=== PATIENT | female | born 1950 | race Caucasian/White ===

== ENCOUNTER 2017-05-18 06:56 | Day surgery (SDC) | payer MEDICARE, BC ==
[2017-05-15 10:28] VITALS: BMI 35.3
[~2017-05-18 06:56] MED LIST: FLU VACC TS2017-18 (>65YR) 0.5 ML SYRINGE IM ONE
[2017-05-18 07:57] VITALS: BP 149/85; TEMP 97.7
[2017-05-18] MEDS ORDERED: Iopamidol-M 300 61% 15 ML VIAL ONE ×2 (16:37→16:38)
--- NOTE | 2017-05-18 17:33 | CT ---
CT GUIDED CERVICAL MYELOGRAM: 05/18/17 CLINICAL HISTORY: Back pain. PROCEDURE: Informed consent was obtained from the patient. The patient was escorted to the CT suite and placed in a right decubitus position with the cervical spine imaged for procedural planning. The patient's skull base and neck soft tissues were then prepped and draped in the standard sterile fashion. Topic al anesthesia was achieved with buffered 1% lidocaine. Subsequently at 22 gauge needle was uneventfu lly accessed into the thecal sac of the C1-2 level, from a left lateral approach. Approximately 9 mL of Isovue M300 was then instilled into the thecal sac which was confirmed with imaging. Needle was removed. Patient tolerated the procedure well without evidence of complication. Patient was monitore d in the radiology holding area and discharged in stable condition subsequent to the procedure. IMPRESSION: Technically successful CT guided cervical myelogram. Reference separate reports for details regardin g the CT cervical spine, CT thoracic spine and CT lumbar spine contrasted diagnostic imaging exams. POS: [facility]
--- NOTE | 2017-05-18 18:56 | RAD ---
CERVICAL SPINE MYELOGRAM THORACIC SPINE MYELOGRAM LUMBAR SPINE MYELOGRAM: INDICATION: Radiculopathy. FLUORO DATA: 0.4 minutes intermittent fluoroscopy. 349 mGy*cm\S\2. PROCEDURE: After informed consent had been obtained, the patient was escorted to the interventional suite and p laced on the procedural table. [employer] imaging was performed. The patient was placed into a prone po sition. Skin on the low back was then prepped and draped in the standard sterile fashion and topica l and regional soft tissue anesthesia was achieved with 1% lidocaine and sodium bicarbonate. L4-5 in terlaminar approach was selected, and a 22 gauge needle was used. Despite standard fluoroscopic as w ell as subsequent imaging under rotational C-arm imaging, acquisition into the thecal sac was not ob tainable due to extensive bone fragment posterior to the spinal column. The patient was subsequently transferred to CT to undergo CT myelogram. IMPRESSION: Fluoroscopic imaging for myelogram procedure as above. Due to extensive posterior bone fragmentation access into the thecal sac was not obtainable. This was discussed with the patient and the patient was offered procedure to include CT guided cervi miroslava myelogram which the patient consented. Patient was subsequently transferred to CT for CT guided cervical myelogram. Reference separate report for further details. POS: [facility]
--- NOTE | 2017-05-18 19:23 | CT ---
CT CERVICAL SPINE WITH CONTRAST: Imaging performed subsequent to myelogram procedure. Indication: Pain, radiculopathy. FINDINGS: Degenerative hypertrophy of the atlantodental articulation is present which minimally effaces the ve ntral CSF space without high grade stenosis of the vertebral canal. C2-3: No significant central canal stenosis. There is uncinate and facet hypertrophy on the right wi th mild right foraminal narrowing. Left foramen is patent. C3-4: Mild, asymmetric to the left facet hypertrophy as well as uncinate process hypertrophy present with mild left foraminal narrowing. No significant central canal or right foraminal stenosis. C4-5: Broad based disc osteophyte complex is present with mild narrowing of the central canal. There is moderate right facet osteoarthritis/hypertrophy along with uncinate process hypertrophy producin g mild right foraminal stenosis. No significant left foraminal stenosis. C5-6: Broad based disc osteophyte is present and there is asymmetric, moderate left facet hypertroph y along with bilateral uncinate process hypertrophy. Constellation of findings produces mild central canal stenosis and mild bilateral neural foraminal stenosis. There is mild ventral cord flattening. C6-7: Broad based disc osteophyte complex results in moderate central canal stenosis with associated mild cord compression. There is moderate biforaminal stenosis. C7-T1: No high grade central canal stenosis. There is mild narrowing of each neural foramen. There is grade I spondylolisthesis of C4-5 and C5-6. Trace retrolisthesis of C6-7 and trace spondylo listhesis of C7-T1, with findings likely on the basis of degenerative etiologies. Incidental note of interstitial opacification of the imaged lung zones, incompletely evaluated. IMPRESSION: Multilevel degenerative change throughout the cervical spine which is most pronounced at C6-7 with m oderate central canal stenosis and associated cord compression due to a broad based disc osteophyte complex. POS: [facility]
--- NOTE | 2017-05-18 19:34 | CT ---
CT THORACIC SPINE WITH CONTRAST: Exam is performed subsequent to myelogram procedure. Clinical history: Back pain, radiculopathy. FINDINGS: There is extensive sclerosis throughout multilevel vertebrae with interspersed areas of presumed cys tic degeneration. There is an indwelling, partially visualized dorsal column stimulator with tip ter minating at the dorsal aspect of the vertebral canal at the T7-8 level. No significant central canal stenosis of T1-2, T2-3. There is a mild right subarticular disc osteoph yte of T2-3 which mildly effaces the right ventral thecal sac. The T3-4 level reveals broad based disc osteophyte with mild narrowing of the central canal. At the T4-5 level there is a slight asymmetric right ventral CSF effacement due to disc osteophyte. No high grade central canal stenosis at T5-6 or T6-7. T7-8 level reveals prominent soft tissue density at the ventral aspect of the vertebral canal likely on the basis of degenerative disc which may relate to a component of cephalad extrusion or alternat ively dural hyperplasia. There is a punctate increased density about this region with adjacent parti ally gas filled cystic structure of the posterior and inferior T7 vertebral body favoring degenerati ve cyst formation with mild fragmentation of osteophyte and/or component of calcified disc bulge. Th ere is limited evaluation of the spinal cord at this level due to streak artifact from the indwellin g dorsal column stimulator. T8-9 level reveals mild CSF effacement ventrally due to disc osteophyte, and mild disc osteophyte co mplex also present at the T9-10, T10-11 and T11-12 levels with mild central canal stenosis of T10-11 and mild to moderate central canal stenosis or T11-12. There is mild to moderate multilevel osseous compromise of the neural foraminal throughout the thora cic spine. There is partially imaged hardware of the T12 segment. Incidental note of a mild to moderate size hiatal hernia. There is scattered vascular calcification. There are incidentally imaged areas of interstitial and ground glass opacity at each lung, incomple tely evaluated. There is levoscoliosis of the lower thoracic spine. IMPRESSION: 1. Multilevel degenerative changes of the thoracic spine. There is extensive presumed degenerative a ltered density of the regional osseous structures with multifocal mixed sclerosis and presumed degen erative cyst formation. 2. Indwelling dorsal column stimulator present. 3. Multilevel disc osteophyte complex formation/disc pathology with associated mild and mild to mode rate areas of central canal narrowing as above. POS: [facility]
--- NOTE | 2017-05-18 19:38 | SPC ---
FLUOROSCOPIC IMAGING SPINAL INJECTION: Indication: Back pain, radiculopathy. Procedure: Please reference the separate dictation from patient's myelogram report. This portion of the procedu re was performed in an attempt to obtained access into the thecal sac of the lumbar spine under real -time fluoroscopic imaging with rotational imaging. Due to extensive ossification posterior to the v ertebral column, access into the thecal sac could not be obtained. Therefore, patient was transferre d CT to undergo CT cervical spine myelogram. Reference separate report for full details. This portion of the exam was performed in conjunction with the fluoroscopic procedure deport. IMPRESSION: 1. Fluoroscopic imaging for guidance to the thecal sac of the lumbar spinal canal. Intrathecal acces s could not be obtained due to extensive ossification posterior to the patient's post-operative lumb ar spine. 2. Reference CT guided cervical myelogram report for full details. POS: [facility]
--- NOTE | 2017-05-18 20:17 | CT ---
CT LUMBAR SPINE WITH CONTRAST: Imaging performed subsequent to myelogram procedure. Comparison: 04-07-13 FINDINGS: There is extensive post-operative metallic fixation spinal hardware spanning T12 through S1 with marvin ateral pedicle screws at each level and bilateral vertical interconnecting rods. Anterior metallic p late fixation present involving the L4 vertebral body with plate and screw overlying the anterior as pect of the L3-4 and L4-5 disc spaces as well as anterior metallic plate and screw placement at the inferior L5 level with plate overlying the anterior confines of the L5-S1 disc. There is a partially imaged dorsal column stimulator which enters the posterior aspect of the verteb ral canal at the T12-L1 level. There is mild retrolisthesis of L2 on L3 and trace spondylolisthesis of L4-5 level. No compression fracture. There is extensive posterior heterotopic bone overlying the posterior elements. Evaluation is markedly limited due to extensive beam hardening artifact from mul tilevel hardware. L5-S1: Contents of the vertebral canal are grossly stable to prior exam. There is mild bilateral for aminal narrowing and mild ventral CSF effacement of the thecal sac. L4-5: Extensive posterior osseous fusion mass present. There is mild narrowing of the thecal sac as well as potential for impingement upon the traversing right L5 nerve root due to osseous hypertrophy . Mild osseous narrowing of each neural foramen present. L3-4: There is mild effacement of the thecal sac and mild bilateral osseous narrowing of the neural foramina. L2-3: Limited evaluation of the thecal sac due to extensive streak and beam hardening artifact. Sugg estion of mild narrowing of the central canal. There is mild bilateral neural foraminal narrowing. L1-2: Effacement of the ventral thecal sac. Mild left foraminal narrowing and minimal right foramina l narrowing on the basis of osseous compromise. Moderate distention of the partially imaged urinary bladder. There is diffuse osseous sclerosis involving the visualized osseous structures of the pelvis as well as within the lower thoracic spine. No significant perihardware lucency identified within limitatio ns. IMPRESSION: 1. Multilevel extensive post-operative change of the lumbar spine which markedly limits evaluation d ue to beam hardening/streak artifact from indwelling hardware. 2. Multilevel degenerative changes are discussed above. POS: [facility]
== END 2017-05-18 13:55 | disposition home or self-care (01) ==
LOC: RAD 06:56
PROVIDERS: ATTEND Family Medicine
PROC: B02BYZZ Computerized Tomography (CT Scan) of Spinal Cord using Other Contrast (ICD-10-PCS; principal; 2017-05-18)
DX: M54.12 Radiculopathy, cervical region (principal); M54.14 Radiculopathy, thoracic region; M54.16 Radiculopathy, lumbar region; F41.9 Anxiety disorder, unspecified; M19.90 Unspecified osteoarthritis, unspecified site; K63.9 Disease of intestine, unspecified; I10 Essential (primary) hypertension; K21.9 Gastro-esophageal reflux disease without esophagitis; Z88.1 Allergy status to other antibiotic agents; Z88.2 Allergy status to sulfonamides; Z79.899 Other long term (current) drug therapy; Z98.51 Tubal ligation status; Z90.89 Acquired absence of other organs; Z90.721 Acquired absence of ovaries, unilateral; Z96.653 Presence of artificial knee joint, bilateral; Z98.891 History of uterine scar from previous surgery; Z87.891 Personal history of nicotine dependence; Z82.61 Family history of arthritis; Z82.49 Family history of ischemic heart disease and other diseases of the circulatory system; Z82.62 Family history of osteoporosis
CPT/HCPCS: 62305; 72126; 72129; 72132; 77002; 77003

== ENCOUNTER 2017-10-11 09:42 | Emergency (ER) | payer MEDICARE, BC ==
--- NOTE | 2017-10-11 10:14 | RAD ---
PORTABLE CHEST: Date: 10/11/17 PROVIDED CLINICAL HISTORY: Dyspnea. FINDINGS: Comparison with 07/02/10. Cardiac and mediastinal silhouette is within normal limits for portable technique. No focal consolida tion, pleural fluid, or pneumothorax apparent. IMPRESSION: No evidence for an acute cardiopulmonary process. POS: [facility]
[2017-10-11 10:38] LABS: #Basophils 0.1 thou/uL (0.0-0.2); #Eosinphils 0.1 thou/uL (0.0-0.7); #Lymphocytes 1.1 thou/uL (1.20-3.40); #Monocytes 0.5 thou/uL (0.11-0.59); #Neutrophils 2.8 thou/uL (1.40-6.50); %Basophils 1.5 % (0.0-1.0); %Lymphocytes 24.2 % (21.0-51.0); %Monocytes 10.7 % (0.0-10.0); %Neutrophils 60.5 % (42.0-75.0); Hemoglobin 12.3 g/dL (12.0-16.0); Mean Corpuscular HGB CONC 34.1 g/dL (32.0-36.0); Mean Corpuscular Hemoglobin 33.2 pg (27.0-31.0); Mean Corpuscular Volume 97.6 fl (81.0-99.0); Platelet Count 268 thou/uL (130-400); RBC Distribution Width 12.5 % (11.5-14.5); Red Blood Cell (RBC) Count 3.71 mill/uL (4.20-5.40); White Blood Cell (WBC) Count 4.7 thou/uL (4.8-10.8)
[2017-10-11 11:01] LABS: ALT (SGPT) 19 U/L (8-55); AST (SGOT) 21 U/L (5-34); Albumin 4.4 g/dL (3.4-4.8); Alkaline Phosphatase 89 U/L (40-150); Anion Gap 13 mmol/L (10-20); BUN (Urea Nitrogen) 9 mg/dL (9.8-20.1); Bilirubin, Total 0.5 mg/dL (0.2-1.2); CK (CPK) 155 U/L (29-168); Calc. Creatinine Clearance 0 mL/min (70-130); Calcium 9.5 mg/dL (7.8-10.44); Carbon Dioxide 27 mmol/L (23-31); Chloride 100 mmol/L (98-107); Estimated GFR-MDRD 84; Globulin 2.5 g/dL (2.4-3.5); Glucose 91 mg/dL (80-115); Potassium 3.9 mmol/L (3.5-5.1); Protein, Total 6.9 g/dL (6.0-8.3); Sodium 136 mmol/L (136-145)
[2017-10-11 11:02] LABS: CKMB 2.9 ng/mL (0-6.6); Troponin I Less than 0.010 ng/mL (< 0.028)
--- NOTE | 2017-10-11 11:14 | ULT ---
BILATERAL LOWER EXTREMITY VENOUS DOPPLER: Date: 10/11/17 PROVIDED CLINICAL HISTORY: Shortness of breath and bilateral lower extremity edema. FINDINGS: Zamudio scale and color Doppler sonography with spectral analysis was performed of the bilateral common femoral, femoral, popliteal, posterior tibial, greater saphenous, and profunda femoral veins, demonst rating a normal sonographic appearance to each. IMPRESSION: No sonographic evidence for lower extremity deep venous thrombosis. POS: [facility]
== END 2017-10-11 12:39 | disposition home or self-care (01) ==
LOC: ERS 09:42
DX: R60.0 Localized edema (principal); M41.9 Scoliosis, unspecified; K51.90 Ulcerative colitis, unspecified, without complications; I10 Essential (primary) hypertension; M06.9 Rheumatoid arthritis, unspecified; Z79.891 Long term (current) use of opiate analgesic; Z79.899 Other long term (current) drug therapy
CPT/HCPCS: 36415; 71045; 80053; 82553; 83880; 84484; 85025; 93005; 93970; 94760

== ENCOUNTER 2018-01-15 13:34 | Outpatient (CLI) | payer MEDICARE, BC | END 2018-01-15 13:35 | disposition home or self-care (01) | LOC: BICMAMMO 13:34 | PROVIDERS: ATTEND Family Medicine | DX: Z12.31 Encounter for screening mammogram for malignant neoplasm of breast (principal); Z80.3 Family history of malignant neoplasm of breast | CPT/HCPCS: 77063; 77067 ==

== ENCOUNTER 2019-01-17 08:28 | Outpatient (CLI) | payer MEDICARE, BC ==
--- NOTE | 2019-01-17 09:13 | MMO ---
Bilateral MAMMO Bilat Screen [facility]. CLINICAL HISTORY: Patient is 68 years old and is seen for screening. The patient has no personal history of cancer. VIEWS: The views performed were: bilateral craniocaudal with tomosynthesis and bilateral mediolateral oblique with tomosynthesis. FILMS COMPARED: The present examination has been compared to prior imaging studies performed at [facility] on 06/21/2014, 06/22/2015, 07/24/2016 and 01/15/2018. MAMMOGRAM FINDINGS: There are scattered fibroglandular densities. There are stable benign appearing calcifications seen in both breasts. There are no suspicious masses, suspicious calcifications, or new areas of architectural distortion. IMPRESSION: THERE IS NO MAMMOGRAPHIC EVIDENCE OF MALIGNANCY. A ROUTINE FOLLOW-UP MAMMOGRAM IN 1 YEAR IS RECOMMENDED. THE RESULTS OF THIS EXAM WERE SENT TO THE PATIENT. ACR BI-RADS Category 2 - Benign finding MAMMOGRAPHY NOTE: 1. A negative mammogram report should not delay a biopsy if a dominant of clinically suspicious mass is present. 2. Approximately 10% to 15% of breast cancers are not detected by mammography. 3. Adenosis and dense breasts may obscure an underlying neoplasm.
--- NOTE | 2019-01-17 11:42 | ULT ---
HEPATIC ULTRASOUND WITH DOPPLER: HISTORY: Abnormal liver enzymes. FINDINGS: The liver demonstrates increased echogenicity, consistent with fatty infiltration. No focal mass or intrahepatic ductal dilatation is seen. no gallstones, gallbladder wall thickening, or pericholecyst ic fluid is seen. The spleen is normal, measuring 9.8 cm in length. The pancreas and gallbladder ap pear normal. The common duct measures 6 mm in diameter. no free fluid is seen in the right upper qu adrant. There is normal flow and spectral wave-forms in the hepatic, portal, and splenic vasculature. IMPRESSION: 1. Fatty liver. 2. No evidence of cholelithiasis or biliary obstruction. POS: [facility]
== END 2019-01-17 08:29 | disposition home or self-care (01) ==
LOC: BICMAMMO 08:28
PROVIDERS: ATTEND Family Medicine
DX: Z12.31 Encounter for screening mammogram for malignant neoplasm of breast (principal); R94.5 Abnormal results of liver function studies; K76.0 Fatty (change of) liver, not elsewhere classified
CPT/HCPCS: 76705; 77063; 77067

== ENCOUNTER 2019-02-07 14:02 | Outpatient (CLI) | payer MEDICARE, BC ==
--- NOTE | 2019-02-07 15:11 | RAD ---
TWO VIEWS ABDOMEN: DATE: 02/07/2019. PROVIDED CLINICAL HISTORY: Hemoptysis. FINDINGS: The visualized lung bases appear free of significant opacity. The abdominal bowel gas pattern is non specific. Moderate colonic fecal retention. No evidence for pneumoperitoneum. Postoperative changes extensively involve lumbar spine. Pain pump overlies right pelvis. No radiographically apparent ur inary tract calculi. IMPRESSION: Moderate colonic fecal retention. Nonspecific bowel gas pattern. POS: [facility]
--- NOTE | 2019-02-07 15:14 | RAD ---
2 VIEWS CHEST: Date: 02/07/19 PROVIDED CLINICAL HISTORY: Hemoptysis. COMPARISON: 10/11/17. FINDINGS: The cardiac and mediastinal silhouette is unchanged in appearance. Hiatal hernia is demonstrated. Den sity overlying the lower thoracic spine on the lateral view could reflect a lung parenchymal process or superimposition of lung parenchyma and thoracic spine degenerative change. No pleural fluid or pne umothorax apparent. IMPRESSION: 1. Hiatal hernia. 2. Possible parenchymal opacity overlying the lower thoracic spine on the lateral view. Given the pr ovided history, correlation with chest CT may be useful. POS: [facility]
== END 2019-02-07 14:03 | disposition home or self-care (01) ==
LOC: BICRAD 14:02
PROVIDERS: ATTEND Internal Medicine Gastroenterology
DX: R04.2 Hemoptysis (principal); K44.9 Diaphragmatic hernia without obstruction or gangrene; K59.00 Constipation, unspecified
CPT/HCPCS: 71046; 74019

== ENCOUNTER 2019-06-10 12:47 | Outpatient (CLI) | payer MEDICARE, BC ==
--- NOTE | 2019-06-10 13:55 | CT ---
EXAM: CT of the chest with contrast HISTORY: Abnormal chest x-ray with possible opacity overlying the lower chest on the lateral view COMPARISON: None TECHNIQUE: Multiple contiguous axial images were obtained in a CT the chest with contrast. Coronal an d sagittal reformats were performed. FINDINGS: HEART: Normal in size without focal cardiac abnormality MEDIASTINUM: No hilar or mediastinal lymphadenopathy. Moderate hiatal hernia. LUNGS: No focal infiltrates, nodules, or masses. PLEURAL SPACE: No pneumothorax or pleural effusion. CHEST WALL SOFT TISSUES: Unremarkable OSSEOUS STRUCTURES: Degenerative and postsurgical changes in the spine. VISUALIZED SUBDIAPHRAGMATIC STRUCTURES: Unremarkable IMPRESSION: Moderate hiatal hernia; otherwise unremarkable exam.
[2019-06-10] MEDS ORDERED: Iopamidol-370 76% 500 ML 1 ML ONE (16:27)
== END 2019-06-10 12:48 | disposition home or self-care (01) ==
LOC: BICCT 12:47
PROVIDERS: ATTEND Internal Medicine Gastroenterology
DX: R93.89 Abnormal findings on diagnostic imaging of other specified body structures (principal); K44.9 Diaphragmatic hernia without obstruction or gangrene
CPT/HCPCS: 71260; Q9967

== ENCOUNTER 2020-01-20 09:40 | Outpatient (CLI) | payer MEDICARE, BC ==
--- NOTE | 2020-01-20 11:55 | MMO ---
Bilateral MAMMO Bilat Screen [facility]. CLINICAL HISTORY: Patient is 69 years old and is seen for screening. The patient has the following family history of breast cancer: sister, at age 65, malignant (generic). The patient has no personal history of cancer. VIEWS: The views performed were: bilateral craniocaudal with tomosynthesis and bilateral mediolateral oblique with tomosynthesis. FILMS COMPARED: The present examination has been compared to prior imaging studies performed at [facility] on 06/22/2015, 07/24/2016, 01/15/2018 and 01/17/2019. This study has been interpreted with the assistance of computer-aided detection. MAMMOGRAM FINDINGS: There are scattered fibroglandular densities. Benign calcifications are noted bilaterally. There are no suspicious masses, suspicious calcifications, or new areas of architectural distortion. IMPRESSION: THERE IS NO MAMMOGRAPHIC EVIDENCE OF MALIGNANCY. A ROUTINE FOLLOW-UP MAMMOGRAM IN 1 YEAR IS RECOMMENDED. THE RESULTS OF THIS EXAM WERE SENT TO THE PATIENT. ACR BI-RADS Category 2 - Benign finding MAMMOGRAPHY NOTE: 1. A negative mammogram report should not delay a biopsy if a dominant of clinically suspicious mass is present. 2. Approximately 10% to 15% of breast cancers are not detected by mammography. 3. Adenosis and dense breasts may obscure an underlying neoplasm. Reported by: TRAY LAINEZ MD Electonically Signed: [id number]
== END 2020-01-20 09:41 | disposition home or self-care (01) ==
LOC: BICMAMMO 09:40
PROVIDERS: ATTEND Family Medicine
DX: Z12.31 Encounter for screening mammogram for malignant neoplasm of breast (principal); Z80.3 Family history of malignant neoplasm of breast
CPT/HCPCS: 77063; 77067

== ENCOUNTER 2021-01-22 10:51 | Outpatient (CLI) | payer MEDICARE, BC | END 2021-01-22 10:52 | disposition home or self-care (01) | LOC: BICMAMMO 10:51 | PROVIDERS: ATTEND Family Medicine | DX: Z12.31 Encounter for screening mammogram for malignant neoplasm of breast (principal); Z80.3 Family history of malignant neoplasm of breast | CPT/HCPCS: 77063; 77067 ==

== ENCOUNTER 2021-06-19 12:56 | Emergency (ER) | payer MEDICARE, BC ==
[~2021-06-19 12:56] MED LIST changes: -FLU VACC TS2017-18 (>65YR) 0.5 ML SYRINGE IM ONE; +Iopamidol-370 76% 500 ML 1 ML ONE
[2021-06-19 13:45] LABS: #Basophils 0.1 thou/uL (0.0-0.2); #Eosinphils 0.2 thou/uL (0.0-0.7); #Lymphocytes 1.4 thou/uL (1.20-3.40); #Monocytes 0.4 thou/uL (0.11-0.59); #Neutrophils 2.4 thou/uL (1.40-6.50); %Basophils 1.2 % (0.0-1.0); %Eosinophils 4.6 % (0.0-10.0); %Lymphocytes 31.4 % (21.0-51.0); %Monocytes 8.7 % (0.0-10.0); %Neutrophils 54.1 % (42.0-75.0); Hemoglobin 13.7 g/dL (12.0-16.0); Mean Corpuscular HGB CONC 34.6 g/dL (32.0-36.0); Mean Corpuscular Hemoglobin 34.7 pg (27.0-31.0); Mean Platelet Volume 6.2 fL (7.4-10.4); Platelet Count 195 thou/uL (130-400); RBC Distribution Width 11.7 % (11.5-14.5); Red Blood Cell (RBC) Count 3.96 mill/uL (4.20-5.40); White Blood Cell (WBC) Count 4.5 thou/uL (4.8-10.8)
[2021-06-19 13:58] LABS: Bilirubin Negative (Negative); Blood, Urine Negative (Negative); Clarity Clear (Clear); Glucose, Urine (Dipstick) Normal (Negative); Ketone, Urine Negative (Negative); Leukocyte Negative Leu/uL (Negative); Nitrite Negative (Negative); Protein, Urine (Dipstick) Negative (Neg-Trace); Specific Gravity, Urine 1.006 (1.002-1.036); Urobilinogen Normal mg/dL (Less than 2); pH, Urine 7.5 (5.0-9.0)
[2021-06-19 14:07] LABS: Anion Gap 10 mmol/L (10-20); BUN (Urea Nitrogen) 11 mg/dL (9.8-20.1); Calc. Creatinine Clearance 0 mL/min (70-130); Calcium 10.2 mg/dL (7.8-10.44); Carbon Dioxide 35 mmol/L (23-31); Chloride 94 mmol/L (98-107); Glucose 109 mg/dL (80-115); Potassium 4.7 mmol/L (3.5-5.1); Sodium 134 mmol/L (136-145)
== END 2021-06-19 16:26 | disposition home or self-care (01) ==
LOC: ERS 12:56
DX: K43.9 Ventral hernia without obstruction or gangrene (principal); I10 Essential (primary) hypertension
CPT/HCPCS: 36415; 74177; 80048; 81003; 83690; 85025; 87086; Q9967

== ENCOUNTER 2021-08-23 07:11 | Day surgery (SDC) | payer MEDICARE, BC ==
[2021-08-14 12:57] VITALS: BMI 32.2
[2021-08-23] MEDS ORDERED: Bupivacaine 0.25% HCL 30 ML VIAL ONE (08:56)
[2021-08-23] MEDS ORDERED: Xylocaine 1% w/ Epi 1:100K 10 ML VIAL ONE (08:56)
[2021-08-23] MEDS ORDERED: Lidocaine 2% Jelly 5 ML TUBE ONE (09:02)
[2021-08-23] MEDS ORDERED: Fentanyl 100 MCG/2 ML VIAL ONE ×2 (09:02→10:22)
[2021-08-23] MEDS ORDERED: ceFAZolin 2 GM/Dextrose 50 ML IVPB ONE (09:11)
[2021-08-23] MEDS ORDERED: Rocuronium Bromide 10 MG/ML (10ML VIAL) ONE (09:22)
[2021-08-23] MEDS ORDERED: Lidocaine 1% PF 5 ML VIAL ONE (09:22)
[2021-08-23] MEDS ORDERED: Ondansetron PF 4 MG/2 ML Vial ONE (09:22)
[2021-08-23] MEDS ORDERED: Glycopyrrolate 0.2 MG/ML 5 ML SYRINGE ONE (09:22)
[2021-08-23] MEDS ORDERED: Dexamethasone 20 MG/5 ML VIAL ONE (09:22)
[2021-08-23] MEDS ORDERED: PHENYLEPHRINE-NS 100 MCG/ML 10 ML SYRINGE ONE (09:22)
[2021-08-23] MEDS ORDERED: PROPOFOL 200 MG/20 ML VIAL ONE (09:22)
== END 2021-08-23 11:57 | disposition home or self-care (01) ==
LOC: SDC 07:11
PROVIDERS: ATTEND Surgery
PROC: 0WUF0JZ Supplement Abdominal Wall with Synthetic Substitute, Open Approach (ICD-10-PCS; principal; 2021-08-23)
DX: K43.2 Incisional hernia without obstruction or gangrene (principal); Z79.899 Other long term (current) drug therapy; Z88.2 Allergy status to sulfonamides; Z88.8 Allergy status to other drugs, medicaments and biological substances
CPT/HCPCS: 49560; 49568; C1889; J0690; J1100; J2405; J2704; J3010; S0020

== ENCOUNTER 2021-11-25 10:45 | Outpatient (CLI) | payer MEDICARE, BC | END 2021-11-25 10:46 | disposition home or self-care (01) | LOC: BICULT 10:45 | PROVIDERS: ATTEND Family Medicine | DX: R22.1 Localized swelling, mass and lump, neck (principal) | CPT/HCPCS: 76536 ==

== ENCOUNTER 2022-02-19 10:22 | Outpatient (CLI) | payer MEDICARE, BC | END 2022-02-19 10:23 | disposition home or self-care (01) | LOC: BICMAMMO 10:22 | PROVIDERS: ATTEND Family Medicine | DX: Z12.31 Encounter for screening mammogram for malignant neoplasm of breast (principal); Z80.3 Family history of malignant neoplasm of breast | CPT/HCPCS: 77063; 77067 ==

== ENCOUNTER 2022-08-27 09:39 | Emergency (ER) | payer MEDICARE, BC ==
[2022-08-27] MEDS ORDERED: LORazepam 2 MG/ML SYR.(CARPUJECT) ONE (11:49)
[2022-08-27 12:33] LABS: #Basophils 0.1 thou/uL (0.0-0.2); #Eosinphils 0.2 thou/uL (0.0-0.7); #Lymphocytes 1.5 thou/uL (1.20-3.40); #Monocytes 0.5 thou/uL (0.11-0.59); %Basophils 1.4 % (0.0-1.0); %Eosinophils 2.9 % (0.0-10.0); %Lymphocytes 28.1 % (21.0-51.0); %Monocytes 10.4 % (0.0-10.0); %Neutrophils 57.3 % (42.0-75.0); Hemoglobin 15.2 g/dL (12.0-16.0); Mean Corpuscular HGB CONC 34.3 g/dL (32.0-36.0); Mean Corpuscular Hemoglobin 34.9 pg (27.0-31.0); Mean Platelet Volume 6.3 fL (7.4-10.4); Platelet Count 213 10x3/uL (130-400); RBC Distribution Width 11.7 % (11.5-14.5); Red Blood Cell (RBC) Count 4.37 mill/uL (4.20-5.40); White Blood Cell (WBC) Count 5.2 10x3/uL (4.8-10.8)
[2022-08-27 12:43] LABS: ALT (SGPT) 35 U/L (8-55); AST (SGOT) 39 U/L (5-34); Albumin 4.9 g/dL (3.4-4.8); Alkaline Phosphatase 92 U/L (40-110); Anion Gap 13 mmol/L (10-20); BUN (Urea Nitrogen) 12 mg/dL (9.8-20.1); Bilirubin, Total 0.5 mg/dL (0.2-1.2); CK (CPK) 291 U/L (29-168); Calc. Creatinine Clearance 0 mL/min (70-130); Calcium 10.3 mg/dL (7.8-10.44); Carbon Dioxide 30 mmol/L (23-31); Chloride 94 mmol/L (98-107); Estimated GFR 94; Globulin 2.9 g/dL (2.4-3.5); Glucose 102 mg/dL (83-110); Potassium 4.1 mmol/L (3.5-5.1); Protein, Total 7.8 g/dL (5.8-8.1); Sodium 133 mmol/L (136-145)
== END 2022-08-27 14:00 | disposition home or self-care (01) ==
LOC: ERS 09:39
DX: I10 Essential (primary) hypertension (principal); F41.9 Anxiety disorder, unspecified
CPT/HCPCS: 71045; 80053; 82550; 83880; 84484; 85025; 93005; J2060; 36415; 96374

== ENCOUNTER 2023-03-03 12:55 | Outpatient (CLI) | payer MEDICARE, BC | END 2023-03-03 12:56 | disposition home or self-care (01) | LOC: SCSRAD 12:55 | PROVIDERS: ATTEND Family Medicine | DX: S99.921A Unspecified injury of right foot, initial encounter (principal) ==

== ENCOUNTER 2023-06-12 11:14 | Outpatient (CLI) | payer MEDICARE, BC | END 2023-06-12 11:15 | disposition home or self-care (01) | LOC: BICMAMMO 11:14 | PROVIDERS: ATTEND Family Medicine | DX: Z12.31 Encounter for screening mammogram for malignant neoplasm of breast (principal); Z80.3 Family history of malignant neoplasm of breast; Z91.89 Other specified personal risk factors, not elsewhere classified | CPT/HCPCS: 77063; 77067 ==

== ENCOUNTER 2024-07-06 11:00 | Outpatient (CLI) | payer MEDICARE, BC | END 2024-07-06 11:01 | disposition home or self-care (01) | LOC: BICMAMMO 11:00 | PROVIDERS: ATTEND Family Medicine | DX: Z12.31 Encounter for screening mammogram for malignant neoplasm of breast (principal); Z80.3 Family history of malignant neoplasm of breast; Z91.89 Other specified personal risk factors, not elsewhere classified | CPT/HCPCS: 77063; 77067 ==